=== PATIENT | male | born 1980 | race Caucasian/White ===

== ENCOUNTER 2021-05-22 13:18 | Outpatient (CLI) | payer OTHER, SELFPAY ==
--- NOTE | ~2021-05-22 | US_ITS ---
EXAMINATION: US abdomen limited EXAM DATE: 05/22/2021 14:04 INDICATION: R10.11 - Right upper quadrant pain. TECHNIQUE: Multiple grayscale and Doppler images of the abdomen right upper quadrant were obtained (b y a technologist who performed the scan) and subsequently reviewed. There is no prior study for jr horta. FINDINGS: The pancreatic head and body are normal in appearance. The pancreatic tail is not visualized. The l iver has normal echogenicity and contour. There are no focal liver lesions identified. There is no evidence of intrahepatic biliary duct dilation. Portal venous flow was seen in the hepatopedal, nor mal direction and has normal Doppler waveform. No right-sided hydronephrosis. Common bile duct measures 3 mm, which is normal. The gallbladder wall is normal in thickness, with ex pected amount of distention. No sonographic evidence of pericholecystic fluid. There is no cholelit hiases. Technologist performing exam reports patient did not demonstrate sonographic Joshi's sign. Please note that this sign is less reliable in patients who have received pain medication. IMPRESSION: 1. Unremarkable abdominal ultrasound exam. Reviewed, dictated and finalized at location B.
--- NOTE | ~2021-05-22 | XR_ITS ---
EXAMINATION: XR chest 2V 05/22/2021 13:56 INDICATION: Cough and congestion PROCEDURE: 2 view chest COMPARISON: No prior studies for comparison. FINDINGS: The lungs are clear. The cardiomediastinal silhouette is within normal limits. There are no pleural effusions. There is no pneumothorax suspected. IMPRESSION: 1: NO ACUTE CARDIOPULMONARY DISEASE. Reviewed, dictated and finalized at location A.
== END 2021-05-22 13:19 | disposition home or self-care (01) ==
LOC: ANHIMG 13:22
PROVIDERS: PCP Family Medicine; Visit Provider Nurse Practitioner Family
DX: R10.11 Right upper quadrant pain (principal); R05 Cough; M89.8X1 Other specified disorders of bone, shoulder
CPT/HCPCS: 71046; 76705

== ENCOUNTER 2021-07-15 10:23 | Outpatient (CLI) | payer OTHER, SELFPAY ==
--- NOTE | 2021-07-19 12:45 | WPDHOLTEREM ---
Holter/Event Monitor Holter/Event Monitor Date of procedure: 07/15/21 Holter/Event Procedure: 48 Hr Holter Monitor Indications: Palpitations Conclusion: 1. 48 hour holter monitor on 07/15/21. 2. Underlying rhythm is sinus rhythm. HR range 49-132 bpm; average HR 81 bpm. 3. There are 20 premature supraventricular complexes. No supraventricular tachycardia. 4. There are 8 premature ventricular complexes. No ventricular tachycardia. 5. No sinoatrial or atrioventricular blocks. No signiifcant pauses greater than 2 seconds. 6. Patient reports symptoms of fluttering, dizziness and shortness of breath which demonstrate sinus rhythm, HR range 74-89 bpm.
== END 2021-07-15 10:24 | disposition home or self-care (01) ==
LOC: ANHCARD 10:25
PROVIDERS: PCP Family Medicine; Visit Provider Nurse Practitioner Family
DX: R00.2 Palpitations (principal)
CPT/HCPCS: 93225; 93226